=== PATIENT | female | born 2000 | race Caucasian/White ===

== ENCOUNTER 2018-11-24 11:26 | Emergency (ER) | payer OTHER, SELFPAY ==
[2018-11-24 11:43] VITALS: BP 122/79; PULSE 81; RESP 18; TEMP 36.7; O2SAT 98
[2018-11-24] MEDS: IBUPROFEN 400 MG TABLET 800 MG PO (11:53)
[2018-11-24] MEDS: ACETAMINOPHEN 325 MG TABLET 975 MG PO (11:53)
[2018-11-24 12:33] LABS: Amorphous Sediment Urine 1+; RBC Urine 0-1/HPF (0-5/HPF); Squamous Epithelial Cell Urine 1-5 /HPF (0-5/HPF); WBC Urine 5-10/HPF (0-5/HPF)
[2018-11-24 12:34] LABS: Bacteria Urine Moderate (10-30); Culture Indicated Urine Specimen Cultured; Mucus Urine 1+ (Negative)
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
== END 2018-11-24 14:50 | disposition home or self-care (01) ==
PROVIDERS: Emergency Medicine; Emergency Provider Nurse Practitioner
DX: S16.1XXA Strain of muscle, fascia and tendon at neck level, initial encounter (principal); M54.89 Other dorsalgia; V43.52XA Car driver injured in collision with other type car in traffic accident, initial encounter
CPT/HCPCS: 81003; 81015; 81025; 87077; 87086; 87147; 99283

== ENCOUNTER 2019-07-05 13:03 | Emergency (ER) | payer OTHER, SELFPAY ==
[2019-07-05 13:10] VITALS: BP 124/81; PULSE 68; RESP 20; TEMP 36.9; O2SAT 99; BMI 23.0
[2019-07-05 13:56] VITALS: BP 125/75; PULSE 74; RESP 16; O2SAT 100
--- NOTE | 2019-07-05 14:16 | DI.RAD.S_ITS ---
PROCEDURE: XR CHEST 1V INDICATIONS: chest pain TECHNIQUE: One view of the chest was acquired. COMPARISON: None. FINDINGS: Surgical changes and devices: None. Lungs and pleura: Lungs are clear. No pleural effusions or pneumothorax. Mediastinum: Mediastinal contours appear normal. Heart size is normal. Bones and chest wall: No suspicious bony lesions. Overlying soft tissues appear unremarkable. IMPRESSION: Portable chest within normal limits. Dictated by: Jeffry Navarrete M.D. on 07/05/2019 at 13:39 Approved by: Jeffry Navarrete M.D. on 07/05/2019 at 13:39
--- NOTE | 2019-07-05 14:19 | PC.NURSE ---
mother states, she was passing alot of gas yesterday.
[2019-07-05 14:20] VITALS: BP 111/79; PULSE 73; RESP 26; O2SAT 100
[2019-07-05 14:23] LABS: Add Manual Diff / Slide Review NO; Basophils Absolute Auto 0 /uL (0-100); Basophils Percent Auto 0.5 % (0-2); Eosinophils Absolute Auto 200 /uL (0-450); Eosinophils Percent Auto 3.6 % (2-4); Hematocrit 40.7 % (36-46); Hemoglobin 14.1 g/dL (12.0-16.0); Lymphocytes Absolute Auto 2100 /uL (1100-4500); Lymphocytes Percent Auto 39.1 % (25-40); Mean Corpuscular HGB Conc 34.6 % (30-36); Mean Corpuscular Hemoglobin 31.1 PG (26-34); Mean Corpuscular Volume 89.8 fL (80-100); Monocytes Absolute Auto 300 /uL (0-900); Monocytes Percent Auto 5.2 % (3-14); Neutrophils Absolute Auto 2800 /uL (1500-7000); Neutrophils Percent Auto 51.6 % (50-75); Platelet Count 180 X10^3/uL (150-400); Red Blood Cell Count 4.53 X10^6/uL (4.0-5.2); Red Cell Distribution Width 12.6 % (11.6-14.8); White Blood Cell Count 5.4 X10^3/uL (4.5-11.0)
[2019-07-05 14:30] LABS: Alanine Aminotransferase 10 IU/L (<35); Albumin 4.5 g/dL (3.5-5.0); Albumin Globulin Ratio 1.6 (1.0-2.8); Alkaline Phosphatase 44 U/L (38-126); Aspartate Aminotransferase 23 IU/L (14-36); BUN Creatinine Ratio 13.3 (6-22); Bilirubin Total 0.5 mg/dL (0.2-1.3); Blood Urea Nitrogen 8 mg/dL (7-17); Calcium 9.3 mg/dL (8.4-10.2); Carbon Dioxide 25 mmol/L (22-32); Chloride 106 mmol/L (98-107); Creatine Kinase 60 U/L (30-135); Estimated Glomerular Filt Rate > 60.0 mL/min (>60); Globulin 2.8 g/dL (1.7-4.1); Glucose 88 mg/dL (70-100); HEMOLYSIS < 15 (0-50); Lipase 155 U/L (23-300); Sodium 140 mmol/L (137-145); Total Protein 7.3 g/dL (6.3-8.2)
[2019-07-05 14:32] LABS: D Dimer < 200 ng/mL (<230)
[2019-07-05 14:37] LABS: Influenza A - CEPHEID Flu A NEGATIVE (NEGATIVE); Influenza B - CEPHEID Flu B NEGATIVE (NEGATIVE)
--- NOTE | 2019-07-05 14:37 | ED.CHESTPAIN ---
HPI - Chest Pain <HOLLY Brandon - Last Filed: 07/05/19 17:33> General Chief Complaint: Chest Pain Stated Complaint: chest pain shortness breath left side arm pain Time Seen by Provider: 07/05/19 14:23 Source: patient Mode of arrival: Ambulatory History of Present Illness HPI narrative: 18-year-old female presents emergency department today complaining of a shortness of breath and left-sided sharp stabbing chest pain for the past 24 hours. She states this is a constant pain and shortness of breath that is worse when she laughs, denies any alleviating factors. She states her blood pressure has been slightly elevated and she had chills yesterday. She denies any cough, history of asthma, fevers, abdominal pain, nausea, vomiting, diarrhea. She denies any recent long trips such as flights or or long car rides. However, she does states she is taking an estrogen containing control pill. She states she had an episode like this in the past that intermittently occurred while playing basketball. However, she has never had her symptoms consistently last this long. Related Data Home Medications Medication Instructions Recorded Confirmed norgestimate-ethinyl estradiol 1 tab PO DAILY 11/24/18 11/24/18 [Tri-Linyah] Previous Rx's Medication Instructions Recorded methocarbamol 750 mg PO TID #7 tab 11/24/18 albuterol sulfate [Ventolin HFA] 2 puff INHALATION Q4-6H PRN #8 gram 07/05/19 Allergies Allergy/AdvReac Type Severity Reaction Status Date / Time No Known Drug Allergies Allergy Verified 11/24/18 11:56 Review of Systems <HOLLY Brandon - Last Filed: 07/05/19 17:33> Review of Systems Narrative: REVIEW OF SYSTEMS: GENERAL: Denies fever or chills. HENT: No head trauma, hearing loss or sore throat. EYES: No loss of vision, double vision, eye pain, or irritation. CARDIOVASCULAR: Complains of left-sided chest pain, see HPI. RESPIRATORY: Complains of shortness of breath. GASTROINTESTINAL: No nausea, vomiting, diarrhea, or constipation. GENITOURINARY: No flank pain or dysuria. MUSCULOSKELETAL: No pain, weakness, or deformities. INTEGUMENTARY: No rash, lesions, or pruritus. NEURO: No numbness, tingling, memory loss, or confusion. PSYCH: No behavior or mood changes. Patient History <HOLLY Brandon - Last Filed: 07/05/19 17:33> Medical History No significant medical problems (Chronic) Social History Smoking Status: Never smoker Smoking Status: Never smoker alcohol intake frequency: other Substance Use Type: does not use Exam <HOLLY Brandon - Last Filed: 07/05/19 17:33> Initial Vital Signs Initial Vital Signs: Vital Signs Temperature 98.5 F 07/05/19 13:10 Pulse Rate 68 07/05/19 13:10 Respiratory Rate 20 07/05/19 13:10 Blood Pressure 124/81 07/05/19 13:10 Pulse Oximetry 99 07/05/19 13:10 PHYSICAL EXAMINATION: GENERAL: Well groomed, alert, and cooperative. Answers questions promptly and appropriately. Vital signs noted. HENT: Normocephalic, atraumatic. Ear canals patent. Oral mucosa is pink and moist. EYES: Conjunctiva pink, sclera white, no periorbital swelling. CHEST: Normal to inspection and without deformities. CARDIOVASCULAR: S1 and S2 sounds normal. Regular rate and rhythm, no murmurs, clicks, or bruits. No pedal edema. RESPIRATORY: Normal respiratory rate, trachea midline, airway patent. No stridor, nasal flaring or accessory muscle use. Lungs are clear in all bui without wheeze, rhonchi, or crackles. GASTROINTESTINAL: Bowel sounds normoactive. Abdomen is soft and non-tender. No organomegaly. MUSCULOSKELETAL: Normal gait and coordination. Equal tone and mass bilaterally. EXTREMITIES: CMS intact. Moves all extremities. SKIN: Warm, dry, soft, appropriate color for ethnicity. No lesions, rashes, or wounds. NEURO: Alert and Oriented X 3. Good coordination. No ataxia, or sensory deficits, or cognitive issues. PSYCH: Appropriate affect and mood. <Kati Mcfarland DO - Last Filed: 07/05/19 17:38> Initial Vital Signs Initial Vital Signs: Vital Signs Temperature 98.5 F 07/05/19 13:10 Pulse Rate 68 07/05/19 13:10 Respiratory Rate 20 07/05/19 13:10 Blood Pressure 124/81 07/05/19 13:10 Pulse Oximetry 99 07/05/19 13:10 Scores <Vanessa HOLLY Jones - Last Filed: 07/05/19 17:33> HEART Score Heart Score history: Slightly Suspicious Heart Score EKG: Normal Heart Score Age: < 45 years old Heart Score risk factors: No known risk factors Heart Score troponin: < or = to normal limit Heart Score Total: 0 Wells' Criteria for PE Clinical signs and symptoms of DVT: No PE is #1 Dx or equally likely: No Heart rate > 100: No Immobilization at least 3 days or surg in previous 4 weeks: No History of PE or DVT: No Hemoptysis: No Malignancy w/Treatment within 6 months or palliative: No Wells' PE Score total: 0 Wells' Criteria for DVT Active Cancer (Treatment within 6 months): No Bedridden recently >3 days or major surgery within 4 weeks: No Calf Swelling >3cm compared to other leg: No Collateral (nonvericose) superficial veins present: No Entire leg swollen: No Localized tenderness along the deep vein system: No Pitting edema, confined to symtomatic leg: No Paralysis, paresis, or recent plaster immobilization of ext: No Previously documented DVT: No Alternative dx to DVT as likely or more likely: No Wells' criteria for DVT: 0 Course <Vanessa HOLLY Jones - Last Filed: 07/05/19 17:33> Course Course Narrative: Patient was given Toradol in the in emergency department, she reports improved pain. She was also given spacer training. Orders Ordered: ED Orders 07/05/19 13:17 EKG-12 Lead Stat 07/05/19 14:05 Complete Blood Count AUTO DIFF Stat Comprehensive Metabolic Panel Stat DD [D Dimer] Stat Flu test [Influenza A & B (PCR)] Stat Lipase Stat Troponin & CK Cardiac Panel Stat 07/05/19 14:16 XR chest 1V Stat Discontinued Medications Ketorolac Tromethamine (Toradol) 30 mg IV NOW ONE Stop: 07/05/19 15:11 Last Admin: 07/05/19 15:41 Dose: 30 mg Documented by: DIMITRIOS Hazel Consultation #1: Patient staffed with Dr. Mcfarland Vital Signs Vital signs: Vital Signs - 8 hr 07/05/19 13:10 07/05/19 13:56 07/05/19 14:20 Temperature 98.5 F Pulse Rate 68 74 73 Respiratory Rate 20 16 26 H Blood Pressure 124/81 Blood Pressure [Left Arm] 125/75 111/79 Pulse Oximetry 99 100 100 07/05/19 15:23 07/05/19 16:14 Temperature Pulse Rate 71 73 Respiratory Rate 16 14 Blood Pressure Blood Pressure [Left Arm] 115/74 Pulse Oximetry 99 99 <Kati Mcfarland DO - Last Filed: 07/05/19 17:38> Orders Ordered: ED Orders 07/05/19 13:17 EKG-12 Lead Stat 07/05/19 14:05 Complete Blood Count AUTO DIFF Stat Comprehensive Metabolic Panel Stat DD [D Dimer] Stat Flu test [Influenza A & B (PCR)] Stat Lipase Stat Troponin & CK Cardiac Panel Stat 07/05/19 14:16 XR chest 1V Stat Discontinued Medications Ketorolac Tromethamine (Toradol) 30 mg IV NOW ONE Stop: 07/05/19 15:11 Last Admin: 07/05/19 15:41 Dose: 30 mg Documented by: DIMITRIOS Vital Signs Vital signs: Vital Signs - 8 hr 07/05/19 13:10 07/05/19 13:56 07/05/19 14:20 Temperature 98.5 F Pulse Rate 68 74 73 Respiratory Rate 20 16 26 H Blood Pressure 124/81 Blood Pressure [Left Arm] 125/75 111/79 Pulse Oximetry 99 100 100 07/05/19 15:23 07/05/19 16:14 Temperature Pulse Rate 71 73 Respiratory Rate 16 14 Blood Pressure Blood Pressure [Left Arm] 115/74 Pulse Oximetry 99 99 MDM - Chest Pain <HOLLY Brandon - Last Filed: 07/05/19 17:33> Medical Records Data Attestation: I reviewed the patient's medical records. Lab Data Attestation: I reviewed the patient's lab results. Result diagrams: 07/05/19 14:05 07/05/19 14:05 Labs: Lab Results 07/05/19 07/05/19 07/05/19 Range/Units 14:05 14:05 14:05 WBC 5.4 (4.5-11.0) X10^3/uL RBC 4.53 (4.0-5.2) X10^6/uL Hgb 14.1 (12.0-16.0) g/dL Hct 40.7 (36-46) % MCV 89.8 (80-100) fL MCH 31.1 (26-34) PG MCHC 34.6 (30-36) % RDW 12.6 (11.6-14.8) % Plt Count 180 (150-400) X10^3/uL Neut % (Auto) 51.6 (50-75) % Lymph % (Auto) 39.1 (25-40) % Fleming % (Auto) 5.2 (3-14) % Eos % (Auto) 3.6 (2-4) % Baso % (Auto) 0.5 (0-2) % Neut # (Auto) 2800 (9072-6708) /uL Lymph # (Auto) 2100 (3949-4517) /uL Fleming # (Auto) 300 (0-900) /uL Eos # (Auto) 200 (0-450) /uL Baso # (Auto) 0 (0-100) /uL D-Dimer < 200 (<230) ng/mL Sodium 140 (137-145) mmol/L Potassium 4.0 (3.4-5.1) mmol/L Chloride 106 (98-107) mmol/L Carbon Dioxide 25 (22-32) mmol/L BUN 8 (7-17) mg/dL Creatinine 0.60 (0.52-1.04) mg/dL Estimated GFR > 60.0 (>60) mL/min BUN/Creatinine Ratio 13.3 (6-22) Glucose 88 (70-100) mg/dL Calcium 9.3 (8.4-10.2) mg/dL Total Bilirubin 0.5 (0.2-1.3) mg/dL AST 23 (14-36) IU/L ALT 10 (<35) IU/L Alkaline Phosphatase 44 (38-126) U/L Total Creatine Kinase 60 (30-135) U/L CK-MB (CK-2) TNP CK-MB (CK-2) Rel Index TNP Troponin I < 0.012 (0.01-0.034) ng/mL Total Protein 7.3 (6.3-8.2) g/dL Albumin 4.5 (3.5-5.0) g/dL Globulin 2.8 (1.7-4.1) g/dL Albumin/Globulin Ratio 1.6 (1.0-2.8) Lipase 155 (23-300) U/L Influenza A (RT-PCR) (NEGATIVE) Influenza B (RT-PCR) (NEGATIVE) 07/05/19 Range/Units 14:05 WBC (4.5-11.0) X10^3/uL RBC (4.0-5.2) X10^6/uL Hgb (12.0-16.0) g/dL Hct (36-46) % MCV (80-100) fL MCH (26-34) PG MCHC (30-36) % RDW (11.6-14.8) % Plt Count (150-400) X10^3/uL Neut % (Auto) (50-75) % Lymph % (Auto) (25-40) % Fleming % (Auto) (3-14) % Eos % (Auto) (2-4) % Baso % (Auto) (0-2) % Neut # (Auto) (9416-8469) /uL Lymph # (Auto) (3633-5539) /uL Fleming # (Auto) (0-900) /uL Eos # (Auto) (0-450) /uL Baso # (Auto) (0-100) /uL D-Dimer (<230) ng/mL Sodium (137-145) mmol/L Potassium (3.4-5.1) mmol/L Chloride (98-107) mmol/L Carbon Dioxide (22-32) mmol/L BUN (7-17) mg/dL Creatinine (0.52-1.04) mg/dL Estimated GFR (>60) mL/min BUN/Creatinine Ratio (6-22) Glucose (70-100) mg/dL Calcium (8.4-10.2) mg/dL Total Bilirubin (0.2-1.3) mg/dL AST (14-36) IU/L ALT (<35) IU/L Alkaline Phosphatase (38-126) U/L Total Creatine Kinase (30-135) U/L CK-MB (CK-2) CK-MB (CK-2) Rel Index Troponin I (0.01-0.034) ng/mL Total Protein (6.3-8.2) g/dL Albumin (3.5-5.0) g/dL Globulin (1.7-4.1) g/dL Albumin/Globulin Ratio (1.0-2.8) Lipase (23-300) U/L Influenza A (RT-PCR) Flu a negative (NEGATIVE) Influenza B (RT-PCR) Flu b negative (NEGATIVE) Imaging Data Chest x-ray: Radiologist's Impression: [address] [address] XRay Report Signed Patient: Faye Magaña [facility]#: [id number] : 2000Acct:[id number] Age/Sex: 18 / FDate of Service: 07/05/19 Loc: ED Accession Number: [id number] Procedure: XR chest 1V Ordering Provider: Kati Mcfarland D.O. PROCEDURE: XR CHEST 1V INDICATIONS: chest pain TECHNIQUE: One view of the chest was acquired. COMPARISON: None. FINDINGS: Surgical changes and devices: None. Lungs and pleura: Lungs are clear. No pleural effusions or pneumothorax. Mediastinum: Mediastinal contours appear normal. Heart size is normal. Bones and chest wall: No suspicious bony lesions. Overlying soft tissues appear unremarkable. IMPRESSION: Portable chest within normal limits. Dictated by: Jeffry Navarrete M.D. on 07/05/2019 at 13:39 Approved by: Jeffry Navarrete M.D. on 07/05/2019 at 13:39 MDM Narrative Medical decision making narrative: This is a 18-year-old female who's healthy appearing and hemodynamically stable presents emergency department for complaints of shortness of breath and chest pain for the past 24 hours. Chest x-ray negative for any structural abnormalities or pneumonia. Influenza negative, labs are non-remarkable including a D-dimer. Differential includes ACS, less likely due to unremarkable EKG, negative chest x-ray, and negative troponin. Less likely DVT, patient's only risk factor was estrogen containing control, D-dimer is negative, and patient has a score of 0 on Wells criteria for DVt and PE. It is possible may be pepe a upper respiratory virus however, she has not been coughing or complaining of sore throat the past 2 days. Differential also includes costochondritis (moderately likely due to increased pain with laughing), and reactive airway disease due to previous reports of shortness of breath with activity such as basketball. Patient was given Toradol in the emergency department which improved her pain. She was also prescribed inhaler to use to relieve her shortness of breath. She was encouraged to follow up with her primary care provider in 1-2 weeks for re-evaluation. She was given strict ED return precautions. <Kati Mcfarland, DO - Last Filed: 07/05/19 17:38> Lab Data Attestation: I reviewed the patient's lab results. Labs: Lab Results 07/05/19 07/05/19 07/05/19 Range/Units 14:05 14:05 14:05 WBC 5.4 (4.5-11.0) X10^3/uL RBC 4.53 (4.0-5.2) X10^6/uL Hgb 14.1 (12.0-16.0) g/dL Hct 40.7 (36-46) % MCV 89.8 (80-100) fL MCH 31.1 (26-34) PG MCHC 34.6 (30-36) % RDW 12.6 (11.6-14.8) % Plt Count 180 (150-400) X10^3/uL Neut % (Auto) 51.6 (50-75) % Lymph % (Auto) 39.1 (25-40) % Fleming % (Auto) 5.2 (3-14) % Eos % (Auto) 3.6 (2-4) % Baso % (Auto) 0.5 (0-2) % Neut # (Auto) 2800 (6841-1041) /uL Lymph # (Auto) 2100 (7352-8406) /uL Fleming # (Auto) 300 (0-900) /uL Eos # (Auto) 200 (0-450) /uL Baso # (Auto) 0 (0-100) /uL D-Dimer < 200 (<230) ng/mL Sodium 140 (137-145) mmol/L Potassium 4.0 (3.4-5.1) mmol/L Chloride 106 (98-107) mmol/L Carbon Dioxide 25 (22-32) mmol/L BUN 8 (7-17) mg/dL Creatinine 0.60 (0.52-1.04) mg/dL Estimated GFR > 60.0 (>60) mL/min BUN/Creatinine Ratio 13.3 (6-22) Glucose 88 (70-100) mg/dL Calcium 9.3 (8.4-10.2) mg/dL Total Bilirubin 0.5 (0.2-1.3) mg/dL AST 23 (14-36) IU/L ALT 10 (<35) IU/L Alkaline Phosphatase 44 (38-126) U/L Total Creatine Kinase 60 (30-135) U/L CK-MB (CK-2) TNP CK-MB (CK-2) Rel Index TNP Troponin I < 0.012 (0.01-0.034) ng/mL Total Protein 7.3 (6.3-8.2) g/dL Albumin 4.5 (3.5-5.0) g/dL Globulin 2.8 (1.7-4.1) g/dL Albumin/Globulin Ratio 1.6 (1.0-2.8) Lipase 155 (23-300) U/L Influenza A (RT-PCR) (NEGATIVE) Influenza B (RT-PCR) (NEGATIVE) 07/05/19 Range/Units 14:05 WBC (4.5-11.0) X10^3/uL RBC (4.0-5.2) X10^6/uL Hgb (12.0-16.0) g/dL Hct (36-46) % MCV (80-100) fL MCH (26-34) PG MCHC (30-36) % RDW (11.6-14.8) % Plt Count (150-400) X10^3/uL Neut % (Auto) (50-75) % Lymph % (Auto) (25-40) % Fleming % (Auto) (3-14) % Eos % (Auto) (2-4) % Baso % (Auto) (0-2) % Neut # (Auto) (3375-1714) /uL Lymph # (Auto) (3425-7620) /uL Fleming # (Auto) (0-900) /uL Eos # (Auto) (0-450) /uL Baso # (Auto) (0-100) /uL D-Dimer (<230) ng/mL Sodium (137-145) mmol/L Potassium (3.4-5.1) mmol/L Chloride (98-107) mmol/L Carbon Dioxide (22-32) mmol/L BUN (7-17) mg/dL Creatinine (0.52-1.04) mg/dL Estimated GFR (>60) mL/min BUN/Creatinine Ratio (6-22) Glucose (70-100) mg/dL Calcium (8.4-10.2) mg/dL Total Bilirubin (0.2-1.3) mg/dL AST (14-36) IU/L ALT (<35) IU/L Alkaline Phosphatase (38-126) U/L Total Creatine Kinase (30-135) U/L CK-MB (CK-2) CK-MB (CK-2) Rel Index Troponin I (0.01-0.034) ng/mL Total Protein (6.3-8.2) g/dL Albumin (3.5-5.0) g/dL Globulin (1.7-4.1) g/dL Albumin/Globulin Ratio (1.0-2.8) Lipase (23-300) U/L Influenza A (RT-PCR) Flu a negative (NEGATIVE) Influenza B (RT-PCR) Flu b negative (NEGATIVE) ECG Data Attestation: I personally reviewed and interpreted this ECG as follows: Prior ECG tracings: not available for review Interpretation: Sinus rhythm with sinus arrhythmia rate of 63 P are 131 QRS of 94 and QTC of 381. No acute ST changes noted. No prior EKGs available. MDM Narrative Medical decision making narrative: Patient case was discussed with myself, labs, EKG and imaging were reviewed and agree with current plan. Discharge Plan Departure Patient Disposition: Home Clinical Impression: Atypical chest pain Discharge Date/Time: 07/05/19 16:20 Activity Restrictions/Additional Instructions: Thank you for entrusting me with your care today. As discussed, your labs, EKG, and chest x-ray are non-remarkable. It is possible you may have some inflammation between your sternal border and ribs causing her pain, this is called costochondritis. Is also possible you may be coming down with a viral illness. As discussed, there may be a component of reactive airway disease which could be causing shortness of breath. I prescribed you an albuterol inhaler, take this every 2-4 hours as needed for shortness of breath. Remember, a can give you a high heart rate and make you shaky. This is a side effect of the medication. Return emergency department for new or worsening symptoms such as high fevers, severe abdominal pain, syncope, other concerns. Prescriptions: New albuterol sulfate [Ventolin HFA] 90 mcg/actuation HFA aerosol inhaler 2 puff INHALATION Q4-6H PRN (Reason: shortness of breath or wheezing) Qty: 8 RF: 0 No Action norgestimate-ethinyl estradiol [Tri-Linyah] 0.18/0.215/0.25 mg-35 mcg (28) tablet 1 tab PO DAILY RF: 0 methocarbamol 750 mg tablet 750 mg PO TID Qty: 7 RF: 0
[2019-07-05 14:42] LABS: Troponin I < 0.012 ng/mL (0.01-0.034)
[2019-07-05 15:23] VITALS: BP 115/74; PULSE 71; RESP 16; O2SAT 99
[2019-07-05] MEDS: KETOROLAC 60 MG/2 ML VIAL 30 MG IV (15:41)
[2019-07-05 16:14] VITALS: PULSE 73; RESP 14; O2SAT 99
== END 2019-07-05 16:20 | disposition home or self-care (01) ==
PROVIDERS: Emergency Medicine; Emergency Provider Nurse Practitioner
DX: R07.89 Other chest pain (principal); R06.02 Shortness of breath
CPT/HCPCS: 36415; 71045; 80053; 82550; 83690; 84484; 85025; 85379; 87502; 93005; 96374; 99284; 99285; J1885

== ENCOUNTER → 2019-08-12 13:54 | Outpatient (CLI) | payer OTHER, SELFPAY | PROVIDERS: Visit Provider Family Medicine | DX: J02.9 Acute pharyngitis, unspecified (principal) | CPT/HCPCS: 87070; 87077; 87185 ==

== ENCOUNTER → 2020-08-24 07:56 | Outpatient (CLI) | payer OTHER, SELFPAY ==
[2020-08-24 09:41] LABS: Add Manual Diff / Slide Review NO; Basophils Absolute Auto 0 /uL (0-100); Basophils Percent Auto 0.4 % (0-2); Eosinophils Absolute Auto 100 /uL (0-450); Eosinophils Percent Auto 2.9 % (2-4); Hematocrit 41.1 % (36-46); Hemoglobin 14.4 g/dL (12.0-16.0); Lymphocytes Absolute Auto 1400 /uL (1100-4500); Lymphocytes Percent Auto 31.5 % (25-40); Mean Corpuscular HGB Conc 35.1 % (30-36); Mean Corpuscular Hemoglobin 30.9 PG (26-34); Mean Corpuscular Volume 88.1 fL (80-100); Monocytes Absolute Auto 200 /uL (0-900); Monocytes Percent Auto 4.6 % (3-14); Neutrophils Absolute Auto 2800 /uL (1500-7000); Neutrophils Percent Auto 60.6 % (50-75); Platelet Count 168 X10^3/uL (150-400); Red Blood Cell Count 4.67 X10^6/uL (4.0-5.2); Red Cell Distribution Width 11.8 % (11.6-14.8); White Blood Cell Count 4.6 X10^3/uL (4.5-11.0)
[2020-08-24 09:43] LABS: Pregnancy Test Urine Negative (Negative)
[2020-08-24 09:57] LABS: Alanine Aminotransferase 11 IU/L (<35); Albumin 4.3 g/dL (3.5-5.0); Albumin Globulin Ratio 1.3 (1.0-2.8); Alkaline Phosphatase 52 U/L (38-126); Aspartate Aminotransferase 26 IU/L (14-36); BUN Creatinine Ratio 17.5 (6-22); Bilirubin Total 0.4 mg/dL (0.2-1.3); Blood Urea Nitrogen 10 mg/dL (7-17); Carbon Dioxide 27 mmol/L (22-32); Chloride 106 mmol/L (98-107); Cholesterol 187 mg/dL (140-199); Estimated Glomerular Filt Rate > 60.0 mL/min (>60); Globulin 3.3 g/dL (1.7-4.1); Glucose 81 mg/dL (70-100); HDL Cholesterol 44 mg/dL (40-60); HEMOLYSIS < 15 (0-50); LDL Cholesterol Calculated 125 mg/dL (<100); Potassium 3.6 mmol/L (3.4-5.1); Sodium 138 mmol/L (137-145); Total Protein 7.6 g/dL (6.3-8.2); Triglycerides 88 mg/dL (35-150)
[2020-08-24 10:13] LABS: Follicle Stimulating Hormone 4.09 mIU/mL; Luteinizing Hormone 3.39 mIU/mL
[2020-08-24 10:14] LABS: Prolactin 23.9 ng/mL (3.0-18.6)
[2020-08-24 10:28] LABS: Thyroid Stimulating Hormone 0.979 uIU/mL (0.47-4.68)
== END ==
PROVIDERS: PCP Registered Nurse; Referring Provider Registered Nurse; Visit Provider Registered Nurse
DX: G43.909 Migraine, unspecified, not intractable, without status migrainosus (principal); Z79.899 Other long term (current) drug therapy; N91.2 Amenorrhea, unspecified; F32.9 Major depressive disorder, single episode, unspecified
CPT/HCPCS: 36415; 80053; 80061; 81025; 83001; 83002; 84146; 84439; 84443; 85025

== ENCOUNTER 2020-10-30 19:41 | Emergency (ER) | payer OTHER, SELFPAY ==
[2020-10-30] VITALS (7 sets, daily range): BP systolic 112–133; BP diastolic 69–83; PULSE 74–94; RESP 18; TEMP 36.7; O2SAT 97–100; BMI 23.9
--- NOTE | 2020-10-30 20:09 | ED_ITS ---
HPI - Female Genitourinary General Chief complaint: OB/Uterine Contractions Stated complaint: Body Pain/ post IUD/ complications Time Seen by Provider: 10/30/20 19:49 Source: patient and family Mode of arrival: Ambulatory Limitations: no limitations History of Present Illness HPI Narrative: 19-year-old female nonsmoker with noncontributory chronic history presents with a chief complaint of increasing pelvic pain and off colored and foul-smelling discharge for the past few days. She denies any fever or chills, nausea or vomiting. She had an IUD placed last Saturday and has not been sexually active since. She had a small amount of spotting and discomfort for the 1st few days, then had a few days which were normal and for the past few days has complaints as stated above. She denies dysuria, frequency or urgency. Her pelvic discomfort is worsened with motion and improves with rest. Onset (ago): day(s) Location: suprapubic Female Urogenital Radiation: LLQ Severity: mild Quality: Aching and Cramping Duration: constant Relieving factors: none Exacerbating factors: movement Vaginal discharge: yellow Sexual activity: No Patient : No Associated symptoms: vaginal discharge and vaginal bleeding (Minimal spotting) Related Data Previous Rx's Medication Instructions Recorded albuterol sulfate [Ventolin HFA] 2 puff INHALATION Q4-6H PRN #8 gram 07/05/19 doxycycline hyclate 100 mg PO BID #20 tab 10/30/20 Allergies Allergy/AdvReac Type Severity Reaction Status Date / Time No Known Drug Allergies Allergy Verified 10/30/20 19:54 Review of Systems Constitutional Constitutional: Denies chills, Denies fatigue, Denies fever(s), Denies frequent falls, Denies lethargy and Denies weakness Eyes Eyes: Denies change in vision, Denies eye discharge, Denies irritation and Denies loss of vision ENT Ears, Nose, Mouth, and Throat: Denies change in voice, Denies dizziness, Denies neck pain, Denies sore throat and Denies throat swelling Cardiovascular Cardiovascular: Denies chest pain, Denies irregular heart rhythm, Denies lightheadedness, Denies palpitations, Denies dyspnea, Denies dyspnea on exertion and Denies orthopnea Respiratory Respiratory: Denies cough, Denies dyspnea, Denies dyspnea on exertion and Denies wheezing Gastrointestinal Gastrointestinal: Denies abdominal pain, Denies change in bowel habits, Denies diarrhea, Denies nausea and Denies vomiting Genitourinary Genitourinary: Reports vaginal discharge and Reports vaginal odor Musculoskeletal Musculoskeletal: Denies neck pain and Denies numbness Integumentary/Breasts Skin/Breast: Denies pruritus, Denies erythema, Denies rash and Denies wounds Neurologic Neurologic: Denies behavioral changes, Denies confusion, Denies dizziness, Denies frequent falls, Denies loss of vision, Denies numbness and Denies weakness Psychiatric Psychiatric: Denies anxiety, Denies behavioral changes, Denies confusion, Denies depression, Denies homicidal ideation and Denies suicidal ideation Endocrine Endocrine: Denies fatigue, Denies flushing and Denies palpitations Hematologic/Lymphatic Hematologic/Lymphatic: Denies easy bruising Allergic/Immunologic Allergic/Immunologic: Denies urticaria, Denies throat swelling and Denies wheezing Patient History Medical History Cerumen impaction Dyspnea Headache (~2013) Migraines (~2013) No significant medical problems Sinusitis Surgical History (~01/07/17) Anesthesia alcohol intake frequency: other Substance Use Type: does not use Exam Narrative Exam Narrative: GEN: AOx3 and in mild distress EYES: Pupils are equal, round, and reactive to light and accommodation. Extraoccular muscles are intact bilaterally. There is no subconjunctival hemorrhage or exudate. CHEST: Lungs are clear to auscultation bilaterally and free of wheezes, rales, or rhonchi. Heart rate is regular rhythm, there are no murmurs, clicks, rubs, or gallops. There is no chest wall tenderness. ABD: Abdomen is soft and minimally tender. There is no guarding or rebound. Bowel sounds are normal in all 4 quadrants. There is no mass or organomegaly. PELVIC: Strings from IUD visible, cervix slightly erythematous with moderate yellowish discharge from the os. Initially difficult removal of the IUD, patient did have some pain and minimal bleeding after it was successfully removed. Exam performed with patient permission and female nursing furnace door tender at the bedside EXT: Full painless ROM of all extremities with no loss of sensation or strength. SKIN: Warm, pink, and dry. No erythema or rash Initial Vital Signs Initial Vital Signs: Vital Signs Temperature 98.0 F 10/30/20 19:51 Pulse Rate 84 10/30/20 19:51 Respiratory Rate 18 10/30/20 19:51 Blood Pressure 133/83 10/30/20 19:51 Pulse Oximetry 100 10/30/20 19:51 Course Orders Ordered: ED Orders 10/30/20 20:09 US pelvic complete Stat Discontinued Medications Ceftriaxone Sodium (Ceftriaxone 1,000 Mg Vial) 500 mg IM NOW ONE Stop: 10/30/20 23:05 Lidocaine HCl (Lidocaine 1% 20 Ml) 2.1 ml INJ NOW ONE Stop: 10/30/20 23:05 Consultations Consultation #1: After initial difficulty with IUD I placed a quick call to the on-call OB Gyne (Foharmeet) who gives instruction and reassurance to pull more firmly and also give ABX for PID with close follow up Vital Signs Vital signs: Vital Signs - 8 hr 10/30/20 19:51 10/30/20 20:56 10/30/20 21:00 Temperature 98.0 F Pulse Rate 84 78 74 Respiratory Rate 18 Blood Pressure 133/83 Pulse Oximetry 100 100 100 10/30/20 22:23 10/30/20 22:24 10/30/20 23:10 Temperature Pulse Rate 81 78 94 H Respiratory Rate Blood Pressure 112/69 112/69 Pulse Oximetry 100 100 98 10/30/20 23:13 Temperature Pulse Rate 80 Respiratory Rate Blood Pressure 115/71 Pulse Oximetry 97 MDM - Female Genitourinary Lab Data Labs: Point of Care Testing Test Results Negative Urine Dip Bedside Urine Glucose Negative Bedside Urine Bilirubin - Negative Bedside Urine Ketone - Negative Urine Specific [place] 1.025 Bedside Urine Occult Blood - Negative Bedside Urine pH 6 Bedside Urine Protein - Negative Bedside Urine Urobilinogen - Negative Bedside Urine Nitrite - Negative Bedside Urine Leukocytes - Negative Esterase Imaging Data US - [employer] OPERATOR: Radiologist's Impression: Faye Magaña 19 F [address] [id number] ReportSigned Patient: GómezShavonFaye DMR#: [id number]: [id number]:[id number]/Sex: 19 / FDate of Service: 10/30/20Loc: EDAccession Number: [id number] Procedure: US pelvic complete Ordering Provider: Chirag Cheney D.O. PROCEDURE: US PELVIC COMPLETE INDICATIONS: PAIN, DISCHARGE 6 DAYS POST IUD INSERTION TECHNIQUE: Real-time scanning was performed of the pelvic organs, with image documentation. Additional endovaginal scanning was necessary due to incomplete visualization of the adnexal and endometrial structures by transabdominal scanning. COMPARISON: None. FINDINGS: Uterus: Retroverted uterus is normal in size at 7.2 x 3.6 x 5.3 cm. Not well seen due to IUD, which is inferior to the fundus Ovaries: Right ovary measures 2.6 x 2.3 x 2.6 cm. The left ovary measures 1.9 x 0.9 x 1.6 cm. The ovaries are unremarkable. Other: No pathologic free abdominal or pelvic fluid. IMPRESSION: Low lying placement of IUD. Dictated by: Frandy Brothers M.D. on 10/30/2020 at 21:51 Approved by: Frandy Brothers M.D. on 10/30/2020 at 21:53 Discharge Plan Departure Patient Disposition: Home Clinical Impression: Pelvic pain IUD complication Qualifiers: Device complication type: mechanical Mechanical complication type: displacement Encounter type: initial encounter Qualified Code(s): T83.32XA - Displacement of intrauterine contraceptive device, initial encounter Instructions: DI for Intrauterine Device Removal Activity Restrictions/Additional Instructions: *You have been diagnosed with [IUD complication with likely infection] *What to do: *Take medications as directed *Follow up with Dr. Mullins in 2-3 days, call for an appointment. Let them know you were seen in the Emergency Department and that we ask that you be seen in follow up *Return to ER if you should have any new, worsening or concerning symptoms, such as [fever over 101 F, shaking chills, worsening pain, bleeding through more than 1 pad per hour or other bothersome symptoms] Prescriptions: New doxycycline hyclate 100 mg tablet 100 mg PO BID Qty: 20 RF: 0 No Action albuterol sulfate [Ventolin HFA] 90 mcg/actuation HFA aerosol inhaler 2 puff INHALATION Q4-6H PRN (Reason: shortness of breath or wheezing) Qty: 8 RF: 0 Referrals: Juliana Mullins MD [Physician] - Sabino Lane ARNP [Primary Care Provider] -
[2020-10-30] MEDS: cefTRIAXone 1,000 MG VIAL 500 MG IM (23:29)
[2020-10-30] MEDS: LIDOCAINE 1% 20 ML 2.1 ML INJ (23:29)
[2020-11-03 11:47] LABS: Chlamydia trachomatis Negative (Negative); Mycoplasma genitalium Negative (Negative); Neisseria gonorrhoeae Negative (Negative)
== END 2020-10-30 23:44 | disposition home or self-care (01) ==
PROVIDERS: Emergency Provider Emergency Medicine; PCP Registered Nurse
DX: R10.2 Pelvic and perineal pain (principal); T83.32XA Displacement of intrauterine contraceptive device, initial encounter
CPT/HCPCS: 76830; 76856; 81003; 81025; 87070; 87205; 87210; 87252; 87491; 87563; 87591; 96372; 99283; 99284; J0696

== ENCOUNTER 2022-05-25 11:52 | Emergency (ER) | payer OTHER, SELFPAY ==
[2022-05-25 12:51] VITALS: BP 126/80; PULSE 73; RESP 14; TEMP 37.1; O2SAT 99; BMI 23.0
[2022-05-25] MEDS: ONDANSETRON 4 MG ODT PO (12:56)
--- NOTE | 2022-05-25 13:58 | DI.CT.S_ITS ---
PROCEDURE: CT ANGIO HEAD AND NECK INDICATIONS: migraine, TECHNIQUE: Pre-contrast 4.5 mm thick sections acquired from the foramen magnum to the vertex. After the administration of intravenous contrast, 1 mm thick sections acquired from the aortic arch through the [place] of [place]. Post-contrast 4.5 mm thick sections then re-acquired from the foramen magnum to the vertex. 3-dimensional dqcoder-hewzoiker-tjarmufykk (MIP) and/or volume rendering reformats were acquired of the central intracranial vasculature and neck separately. For radiation dose reduction, the following was used: automated exposure control, adjustment of mA and/or kV according to patient size. COMPARISON: None. FINDINGS: Image quality: Excellent. BRAIN: CSF spaces: Ventricles are normal in size and shape. Basal cisterns are patent. No extra-axial fluid collections. Brain: No midline shift. No intracranial bleeds or masses. P[place]chett-white matter interface appears intact. Skull and face: Calvarium and facial bones appear intact, without suspicious lesions. Orbits appear normal. Sinuses: Sinuses and mastoids are clear. HEAD CT ANGIOGRAPHY: Anterior circulation: Intracranial internal carotid arteries are normal in size and flow. The flow within the paired anterior cerebral arteries is normal and symmetric. The flow within the middle cerebral arteries is normal and symmetric. The anterior communicating artery is seen. Right posterior communicating artery seen. No aneurysms are seen. Posterior circulation: Visualized portions of the vertebral arteries demonstrate normal caliber, and join to form a normal appearing basilar artery. Flow within the posterior cerebral arteries is normal and symmetric. No aneurysms are seen. NECK CT ANGIOGRAPHY: Carotid system: The great vessels demonstrate a conventional anatomy as they arise from the aortic arch. The origins of the common carotid arteries appear patent. The common carotid arteries demonstrate normal caliber and courses. The bifurcation regions are both widely patent. The internal carotid arteries demonstrate normal calibers and courses. Posterior circulation: The origins of the vertebral arteries both appear widely patent. The more superior extracranial portions of both vertebral arteries also demonstrate normal courses and calibers. They join to form a normal appearing basilar artery. Soft tissues: Visualized neck soft tissues demonstrate no suspicious abnormalities. Bones: No suspicious bony lesions. Visualized cervical spine appears normally aligned. IMPRESSION: 1. No acute intracranial hemorrhage. 2. No large vessel occlusion. 3. No critical stenosis. 4. No aneurysm. Any quantitative measurements of stenosis were performed using NASCET criteria. Dictated by: Eduardo Morgan M.D. on 05/25/2022 at 14:31 Approved by: Eduardo Morgan M.D. on 05/25/2022 at 14:45
[2022-05-25] MEDS: KETOROLAC 30 MG/ML VIAL IM (17:43)
[2022-05-25 17:50] LABS: Influenza A - CEPHEID Flu A NEGATIVE (NEGATIVE); Influenza B - CEPHEID Flu B NEGATIVE (NEGATIVE); Respiratory Syncytial Virus Negative (Negative)
[2022-05-25 17:54] LABS: COVID-19 CEPHEID 4-PLEX PCR Negative (Negative)
== END 2022-05-25 19:34 | disposition left against medical advice (07) ==
PROVIDERS: Emergency Medicine; Emergency Provider Emergency Medicine
DX: G43.909 Migraine, unspecified, not intractable, without status migrainosus (principal); Z20.822 Contact with and (suspected) exposure to COVID-19
CPT/HCPCS: 0241U; 70496; 70498; 96372; 99284; J1885; Q9967

== ENCOUNTER → 2022-11-12 08:20 | Outpatient (CLI) | payer OTHER, SELFPAY ==
[2022-11-12 10:31] LABS: Urine Chlamydia NOT DETECTED; Urine N gonorrhoeae NOT DETECTED
== END ==
PROVIDERS: PCP Family Medicine; Visit Provider Family Medicine
DX: R10.2 Pelvic and perineal pain (principal)
CPT/HCPCS: 87210; 87491; 87591